=== PATIENT | male | born 1970 | race American Indian/Alaskan Native ===

== ENCOUNTER 2018-01-02 05:23 | Emergency (ER) | payer MEDICAID ==
[2018-01-02] MEDS ORDERED: ASPIRIN PO ONE (06:17)
[2018-01-02 07:06] LABS: Basophils # (Auto) 0.1 K/mm3 (0.0-0.1); Basophils % (Auto) 0.5 % (0.0-1.8); Eosinophils # (Auto) 0.1 K/mm3 (0.0-0.4); Eosinophils % (Auto) 0.5 % (0.0-4.3); Hematocrit 45.1 % (35.5-45.6); Lymphocytes # (Auto) 1.8 K/mm3 (1.2-5.4); Lymphocytes % (Auto) 14.7 % (13.4-35.0); Mean Corpuscular HGB Conc 33 % (32-34); Mean Corpuscular Hemoglobin 29 pg (28-32); Mean Corpuscular Volume 88 fl (84-94); Monocytes # (Auto) 1.1 K/mm3 (0.0-0.8); Monocytes % (Auto) 8.7 % (0.0-7.3); Platelet Count 189 K/mm3 (140-440); Red Blood Count 5.16 M/mm3 (3.65-5.03)
[2018-01-02 07:10] LABS: BUN/Creatinine Ratio 4; Blood Urea Nitrogen 3 mg/dL (9-20); Calcium 9.8 mg/dL (8.4-10.2); Hemolysis Index 4
--- NOTE | 2018-01-02 08:02 | Emergency Department Report ---
ED General Adult HPI - General Chief complaint: Chest Pain Stated complaint: TOOTHACHE Time Seen by Provider: 01/02/18 08:00 Source: patient Mode of arrival: Ambulatory Limitations: No Limitations - History of Present Illness Initial comments: This is a 47-year-old male who is noncompliant with his blood pressure medication and dental care. States he saw a dentist 2 years ago for the same problem and "they blew me off". He states he goes to a clinic in [place] where he lives for his medical care. He presented today for evaluation of swelling of his right jaw area. He knows he has problems with his dentition in that area. He states he felt like he had a fever last night. He did not have any right gutters. He denies any neck swelling or difficulty with swallowing. He states incidentally that he had a "chest pain for a second" last night. This chest pain started in his left axillary area and radiated around under his breast and has not recurred. There was no associated symptoms. He denies any recent travel leg pain or swelling. He has no history of CAD or VTE. -: Gradual, days(s), week(s) Location: face Radiation: non-radiation Quality: aching (intermittent right lower dentalgia/jaw pain.) Consistency: intermittent Improves with: none Worsens with: none Associated Symptoms: denies other symptoms, chest pain (chest pain as above described without recurrence) - Related Data Home Medications Medication Instructions Recorded Confirmed Last Taken hydroCHLOROthiazide [HCTZ] 12.5 mg PO DAILY 11/29/14 08/31/15 08/30/15 dilTIAZem [Cardizem] 30 mg PO BID 08/31/15 08/31/15 08/22/15 Previous Rx's Medication Instructions Recorded Last Taken Type Acetaminophen/Codeine [Tylenol #3] 1 tab PO Q6H PRN #10 tab 08/31/15 Unknown Rx Clindamycin [Clindamycin CAP] 300 mg PO Q8H #21 cap 01/02/18 Unknown Rx HYDROcodone/APAP 5-325 [[place] 1 each PO Q6HR PRN #7 tablet 01/02/18 Unknown Rx 5/325] Labetalol [Normodyne TAB] 100 mg PO BID #60 tablet 01/02/18 Unknown Rx Allergies Allergy/AdvReac Type Severity Reaction Status Date / Time No Known Allergies Allergy Unverified 11/29/14 08:50 ED Review of Systems ROS: Stated complaint: TOOTHACHE Other details as noted in HPI Constitutional: fever Eyes: as per HPI. denies: eye pain, eye discharge, vision change ENT: denies: ear pain, throat pain Respiratory: denies: cough, shortness of breath, wheezing Cardiovascular: as per HPI, chest pain. denies: palpitations Endocrine: no symptoms reported Gastrointestinal: denies: abdominal pain, nausea, diarrhea Genitourinary: denies: urgency, dysuria Musculoskeletal: denies: back pain, joint swelling, arthralgia Skin: denies: rash, lesions Neurological: denies: headache, weakness, paresthesias Psychiatric: denies: anxiety, depression Hematological/Lymphatic: denies: easy bleeding, easy bruising ED Past Medical Hx - Past Medical History Previous Medical History?: Yes Hx Hypertension: Yes - Surgical History Past Surgical History?: Yes Additional Surgical History: Hernia removal x2 - Social History Smoking Status: Current Every Day Smoker Substance Use Type: None - Medications Home Medications: Home Medications Medication Instructions Recorded Confirmed Last Taken Type hydroCHLOROthiazide [HCTZ] 12.5 mg PO DAILY 11/29/14 08/31/15 08/30/15 History Acetaminophen/Codeine [Tylenol #3] 1 tab PO Q6H PRN #10 tab 08/31/15 Unknown Rx dilTIAZem [Cardizem] 30 mg PO BID 08/31/15 08/31/15 08/22/15 History Clindamycin [Clindamycin CAP] 300 mg PO Q8H #21 cap 01/02/18 Unknown Rx HYDROcodone/APAP 5-325 [[place] 1 each PO Q6HR PRN #7 tablet 01/02/18 Unknown Rx 5/325] Labetalol [Normodyne TAB] 100 mg PO BID #60 tablet 01/02/18 Unknown Rx ED Physical Exam - General Limitations: No Limitations General appearance: alert, in no apparent distress - Head Head exam: Present: atraumatic, normocephalic - Eye Eye exam: Present: normal appearance. Absent: scleral icterus - ENT ENT exam: Present: mucous membranes moist, other (there is gingival reaction erythema and swelling at tooth 28 or 27. There is a carious retained root at 32. The patient is otherwise edentulous and neck quadrant. There is no fluctuance or drainage.) - Neck Neck exam: Present: normal inspection, full ROM. Absent: tenderness, meningismus - Respiratory Respiratory exam: Present: normal lung sounds bilaterally. Absent: respiratory distress - Cardiovascular Cardiovascular Exam: Present: regular rate, normal rhythm. Absent: systolic murmur, diastolic murmur, rubs, gallop - GI/Abdominal GI/Abdominal exam: Present: soft, normal bowel sounds. Absent: distended, tenderness, guarding, rebound, rigid - Rectal Rectal exam: Present: deferred - Extremities Exam Extremities exam: Present: normal inspection, normal capillary refill. Absent: calf tenderness - Back Exam Back exam: Present: normal inspection - Neurological Exam Neurological exam: Present: alert, oriented X3, CN II-XII intact. Absent: motor sensory deficit - Psychiatric Psychiatric exam: Present: normal affect, normal mood - Skin Skin exam: Present: warm, dry, intact, normal color. Absent: rash ED Course Vital Signs 01/02/18 06:10 Temperature 100 F H Pulse Rate 98 H Respiratory 18 Rate Blood Pressure 177/103 O2 Sat by Pulse 98 Oximetry - Reevaluation(s) Reevaluation #1: The patient will be given IM penicillin. He will be continued on clindamycin. He will be prescribed antihypertensive medication. He is encouraged to follow up with his primary care provider and dentist. He should return any prolonged chest pain for reevaluation. 01/02/18 08:17 ED Medical Decision Making - Lab Data Result diagrams: 01/02/18 06:36 01/02/18 06:36 Laboratory Results - last 24 hr 01/02/18 01/02/18 06:36 06:36 WBC 12.2 H RBC 5.16 H Hgb 15.0 Hct 45.1 MCV 88 MCH 29 MCHC 33 RDW 15.0 Plt Count 189 Lymph % (Auto) 14.7 [place] % (Auto) 8.7 H Eos % (Auto) 0.5 Baso % (Auto) 0.5 Lymph # 1.8 Hunt # 1.1 H Eos # 0.1 Baso # 0.1 Seg Neutrophils % 75.6 H Seg Neutrophils # 9.2 H Sodium 136 L Potassium 4.3 Chloride 98.0 Carbon Dioxide 26 Anion Gap 16 BUN 3 L Creatinine 0.7 L Estimated GFR > 60 BUN/Creatinine Ratio 4 Glucose 104 H Calcium 9.8 Troponin T < 0.010 - EKG Data -: EKG Interpreted by Me EKG shows normal: sinus rhythm, axis (leftward axis), intervals, QRS complexes, ST-T waves - EKG Data Interpretation: other (left atrial abnormality. RSR in V2. No acute ischemic changes) Critical care attestation.: If time is entered above; I have spent that time in minutes in the direct care of this critically ill patient, excluding procedure time. ED Disposition Clinical Impression: Dental infection, Essential hypertension, Atypical chest pain Disposition: TO HOME OR SELFCARE Is pt being admited?: No Does the pt Need Aspirin: No Condition: Stable Instructions: Hypertension (ED), Chest Pain (ED), Dental Abscess (ED) Additional Instructions: Follow-up with your primary care clinic in [place] and dentist there. Rx as directed. Return any acute change. Return any prolonged chest discomfort. Should you have a worsening dental infection bradycardia may be a good choice for additional care as they do have an oral surgery clinic. Prescriptions: Clindamycin [Clindamycin CAP] 300 mg PO Q8H #21 cap HYDROcodone/APAP 5-325 [[place] 5/325] 1 each PO Q6HR PRN #7 tablet PRN Reason: Pain Labetalol [Normodyne TAB] 100 mg PO BID #60 tablet Referrals: usual, primary care and dentist [Other] - 3-5 Days Time of Disposition: 09:00
[2018-01-02] MEDS ORDERED: BICILLIN L-A IM ONE (08:24)
[2018-01-02] MEDS ORDERED: NORMODYNE PO ONE (08:40)
[2018-01-02] MEDS ORDERED: NORCO 5/325 PO ONE (08:40)
[2018-01-02] MEDS ORDERED: NORCO 5/325 ONE (08:48)
[2018-01-02] MEDS ORDERED: NORMODYNE ONE (08:49)
[2018-01-02 09:00] VITALS: BP 167/114
== END 2018-01-02 09:01 | disposition home or self-care (01) ==
LOC: ED 05:23
DX: K04.7 Periapical abscess without sinus (principal); I10 Essential (primary) hypertension; R07.89 Other chest pain; F17.200 Nicotine dependence, unspecified, uncomplicated
CPT/HCPCS: 36415; 80048; 84484; 85025; 93005; 93010; 96372; 99284; J0561

== ENCOUNTER 2018-05-08 11:10 | Emergency (ER) | payer MEDICAID ==
[2018-05-08 11:27] VITALS: BP 133/90
--- NOTE | 2018-05-08 11:27 | Emergency Department Report ---
Blank Doc - Documentation Documentation: 47-year-old male that presents with night sweats x2 nights. Denies any other c omplaints. Stated he take Labetolol 100 mg but has not been taking it as he was prescribed due it causes abdominal discomfort. Also wants medication refill for b/p. Will ordered labs Patient sent to [facility] for further evaluation
[2018-05-08 12:07] LABS: Basophils # (Auto) 0.1 K/mm3 (0.0-0.1); Basophils % (Auto) 0.8 % (0.0-1.8); Eosinophils # (Auto) 0.1 K/mm3 (0.0-0.4); Eosinophils % (Auto) 1.1 % (0.0-4.3); Hematocrit 43.3 % (35.5-45.6); Hemoglobin 14.2 gm/dl (11.8-15.2); Lymphocytes % (Auto) 26.7 % (13.4-35.0); Mean Corpuscular HGB Conc 33 % (32-34); Mean Corpuscular Volume 87 fl (84-94); Monocytes # (Auto) 0.8 K/mm3 (0.0-0.8); Monocytes % (Auto) 10.8 % (0.0-7.3); Platelet Count 122 K/mm3 (140-440); Red Blood Count 4.97 M/mm3 (3.65-5.03); Red Cell Distribution Width 15.4 % (13.2-15.2)
[2018-05-08 12:27] LABS: BUN/Creatinine Ratio 11; Blood Urea Nitrogen 8 mg/dL (9-20); Calcium 8.4 mg/dL (8.4-10.2); Hemolysis Index 65
--- NOTE | 2018-05-08 12:46 | Emergency Department Report ---
ED Recheck HPI - General Chief Complaint: High BP Stated Complaint: BP CHECK Time Seen by Provider: 05/08/18 11:28 Source: patient Mode of arrival: Ambulatory Limitations: No Limitations - History of Present Illness Initial Comments: She is a 47-year-old male who comes to the ER with no complaints he is here just for medication refill. - Related Data Previous Rx's Medication Instructions Recorded Last Taken Type Labetalol [Normodyne TAB] 100 mg PO BID #60 tablet 05/08/18 Unknown Rx Allergies Allergy/AdvReac Type Severity Reaction Status Date / Time No Known Allergies Allergy Verified 05/08/18 11:11 ED Review of Systems ROS: Stated complaint: BP CHECK Other details as noted in HPI Comment: All other systems reviewed and negative Constitutional: denies: chills Eyes: denies: eye pain ENT: denies: throat pain Respiratory: denies: cough Cardiovascular: denies: palpitations ED Past Medical Hx - Past Medical History Hx Hypertension: Yes - Surgical History Additional Surgical History: Hernia removal x2 - Social History Smoking Status: Current Every Day Smoker Substance Use Type: None - Medications Home Medications: Home Medications Medication Instructions Recorded Confirmed Last Taken Type Labetalol [Normodyne TAB] 100 mg PO BID #60 tablet 05/08/18 Unknown Rx ED Physical Exam - General Limitations: No Limitations General appearance: alert, in no apparent distress - Head Head exam: Present: atraumatic - Eye Eye exam: Present: normal appearance Pupils: Present: normal accommodation - ENT ENT exam: Present: mucous membranes moist - Neck Neck exam: Present: normal inspection - Respiratory Respiratory exam: Present: normal lung sounds bilaterally - Cardiovascular Cardiovascular Exam: Present: regular rate - GI/Abdominal GI/Abdominal exam: Present: soft - Rectal Rectal exam: Present: deferred - Extremities Exam Extremities exam: Present: normal inspection, full ROM - Back Exam Back exam: Present: normal inspection, full ROM - Neurological Exam Neurological exam: Present: alert, oriented X3, CN II-XII intact ED Course Vital Signs 05/08/18 11:24 Temperature 97.8 F Pulse Rate 90 Respiratory 18 Rate Blood Pressure 133/90 O2 Sat by Pulse 99 Oximetry ED Recheck MDM - Medical Decision Making Patient is here for medication refill. He has no symptoms. He was seen here and given his blood pressure medicine in the past. We have discussed appropriate PCP use. Referral given Labs 05/08/18 05/08/18 11:58 11:58 WBC 7.7 RBC 4.97 Hgb 14.2 Hct 43.3 MCV 87 MCH 29 MCHC 33 RDW 15.4 H Plt Count 122 L Lymph % (Auto) 26.7 [place] % (Auto) 10.8 H Eos % (Auto) 1.1 Baso % (Auto) 0.8 Lymph # 2.0 [place] # 0.8 Eos # 0.1 Baso # 0.1 Seg Neutrophils % 60.6 Seg Neutrophils # 4.6 Sodium 137 Potassium 4.4 Chloride 99.3 Carbon Dioxide 24 Anion Gap 18 BUN 8 L Creatinine 0.7 L Estimated GFR > 60 BUN/Creatinine Ratio 11 Glucose 87 Calcium 8.4 Critical care attestation.: If time is entered above; I have spent that time in minutes in the direct care of this critically ill patient, excluding procedure time. ED Disposition Clinical Impression: Medication refill, Hypertension Disposition: DC-01 TO HOME OR SELFCARE Is pt being admited?: No Does the pt Need Aspirin: No Condition: Stable Instructions: Hypertension (ED) Prescriptions: Labetalol [Normodyne TAB] 100 mg PO BID #60 tablet Referrals: LIZZY FREED DO [Primary Care Provider] - 3-5 Days Time of Disposition: 12:45
== END 2018-05-08 13:09 | disposition home or self-care (01) ==
LOC: ED 11:10
DX: I10 Essential (primary) hypertension (principal); Z76.0 Encounter for issue of repeat prescription
CPT/HCPCS: 36415; 80048; 85025; 99283

== ENCOUNTER 2019-04-26 16:21 | Emergency (ER) | payer MEDICAID ==
--- NOTE | 2019-04-26 17:11 | Emergency Department Report ---
Blank Doc - Documentation Documentation: 48-year-old male that presents with cough with SOB. This initial assessment/diagnostic orders/clinical plan/treatment(s) is/are subject to change based on patient's health status, clinical progression and re- assessment by fellow clinical providers in the ED. Further treatment and workup at subsequent clinical providers discretion. Patient/guardians urged not to elope from the ED as their condition may be serious if not clinically assessed and managed. Initial orders include: 1- Patient sent to [facility] for further evaluation and treatment 2- cxr
--- NOTE | 2019-04-26 18:00 | XRay Report ---
CHEST 2 VIEWS INDICATION / CLINICAL INFORMATION: MAIN: cough/shortness of breath since 0100pm. COMPARISON: None available. FINDINGS: SUPPORT DEVICES: None. HEART / MEDIASTINUM: No significant abnormality. LUNGS / PLEURA: No significant pulmonary or pleural abnormality. No pneumothorax. ADDITIONAL FINDINGS: No significant additional findings. IMPRESSION: 1. No acute findings. Signer Name: Nir Jang MD Signed: 04/26/2019 5:56 PM Workstation Name: [id number]
[2019-04-26] MEDS ORDERED: ACETAMINOPHEN 325 MG TAB PO ONE (19:49)
[2019-04-26] MEDS ORDERED: IBUPROFEN 600 MG TAB PO ONE (19:49)
--- NOTE | 2019-04-26 19:53 | Emergency Department Report ---
ED General Adult HPI - General Chief complaint: Upper Respiratory Infection Stated complaint: KAYLEE/BACK PAIN Time Seen by Provider: 04/26/19 17:10 Source: patient, RN notes reviewed, old records reviewed Mode of arrival: Ambulatory Limitations: No Limitations - History of Present Illness Initial comments: Patient is a 48-year-old gentleman, history of hypertension, follows with a Dr. Jimenez Patient presents with a complaint of nontraumatic midthoracic back pain, aching, nonspecific shortness of breath which is nonexertional. Symptoms present since last night. Symptoms decreased with certain body positions. Back pain increases with palpation and certain body positions. There is no headache, chest pain, vomiting, diaphoresis, abdominal pain. Patient reports a recent trip, 6 hours to [place]. There is no hematemesis or bright red blood per rectum. -: Gradual Location: back Quality: aching Consistency: intermittent, other Improves with: other Worsens with: other Associated Symptoms: shortness of breath - Related Data Previous Rx's Medication Instructions Recorded Last Taken Type labetaloL [Labetalol 100mg TAB] 100 mg PO BID #60 tablet 05/08/18 Unknown Rx Acetaminophen [Non-Aspirin Extra 500 mg PO Q6HR PRN #30 tablet 04/26/19 Unknown Rx Strength] Ibuprofen [Motrin] 600 mg PO Q8H PRN #30 tablet 04/26/19 Unknown Rx Magnesium Oxide [Mag-Ox] 400 mg PO QDAY #30 tablet 04/26/19 Unknown Rx Allergies Allergy/AdvReac Type Severity Reaction Status Date / Time No Known Allergies Allergy Verified 05/08/18 11:11 ED Review of Systems ROS: Stated complaint: KAYLEE/BACK PAIN Other details as noted in HPI Constitutional: denies: fever Eyes: denies: eye discharge Respiratory: shortness of breath Cardiovascular: denies: chest pain Gastrointestinal: denies: abdominal pain Musculoskeletal: back pain Skin: denies: lesions Neurological: denies: weakness Hematological/Lymphatic: denies: easy bleeding ED Past Medical Hx - Past Medical History Previous Medical History?: Yes Hx Hypertension: Yes - Surgical History Past Surgical History?: Yes Additional Surgical History: Hernia removal x2 - Social History Smoking Status: Current Every Day Smoker Substance Use Type: None - Medications Home Medications: Home Medications Medication Instructions Recorded Confirmed Last Taken Type labetaloL [Labetalol 100mg TAB] 100 mg PO BID #60 tablet 05/08/18 Unknown Rx Acetaminophen [Non-Aspirin Extra 500 mg PO Q6HR PRN #30 tablet 04/26/19 Unknown Rx Strength] Ibuprofen [Motrin] 600 mg PO Q8H PRN #30 tablet 04/26/19 Unknown Rx Magnesium Oxide [Mag-Ox] 400 mg PO QDAY #30 tablet 04/26/19 Unknown Rx ED Physical Exam - General Limitations: No Limitations General appearance: alert, in no apparent distress - Head Head exam: Present: atraumatic, normocephalic - Eye Eye exam: Present: normal appearance, EOMI. Absent: nystagmus - ENT ENT exam: Present: normal exam, normal orophraynx, mucous membranes moist, normal external ear exam - Neck Neck exam: Present: normal inspection, full ROM. Absent: tenderness, meningismus - Respiratory Respiratory exam: Present: normal lung sounds bilaterally. Absent: respiratory distress - Cardiovascular Cardiovascular Exam: Present: regular rate, normal rhythm, normal heart sounds. Absent: bradycardia, tachycardia, irregular rhythm, systolic murmur, diastolic murmur, rubs, gallop - GI/Abdominal GI/Abdominal exam: Present: soft. Absent: distended, tenderness, guarding, rebound, rigid, pulsatile mass - Rectal Rectal exam: Present: deferred - Extremities Exam Extremities exam: Present: normal inspection, full ROM, other (2+ pulses noted in the bilateral upper and lower extremities. There is no long bony tenderness. The pelvis is stable. The muscular compartments are soft. There is no palpable cord. There is no redness, pus or streaking.). Absent: pedal edema, calf tenderness - Back Exam Back exam: Present: normal inspection, full ROM. Absent: tenderness, CVA tenderness (R), CVA tenderness (L), paraspinal tenderness, vertebral tenderness - Neurological Exam Neurological exam: Present: alert, oriented X3, normal gait, other (there is no facial droop. Tongue is midline. Extraocular movements are intact bilaterally. Walking with a steady gait. Speaking in full sentences. Normal appropriate thought content. 5 out of 5 strength in 4 extremities. Sensation is intact to light touch in 4 extremities.). Absent: motor sensory deficit - Psychiatric Psychiatric exam: Present: normal affect, normal mood - Skin Skin exam: Present: warm, dry, intact, normal color. Absent: rash ED Course Vital Signs 04/26/19 04/26/19 04/26/19 17:10 21:03 21:04 Temperature 98.4 F 98.6 F Pulse Rate 72 84 Respiratory 20 16 16 Rate Blood Pressure 162/103 Blood Pressure 167/84 [Left] O2 Sat by Pulse 98 100 Oximetry - Reevaluation(s) Reevaluation #1: 04/26/19 22:43 Patient was informed about incidental a left-sided renal findings, and need to follow-up with her primary care doctor on a routine outpatient basis. ED Medical Decision Making - Lab Data Result diagrams: 04/26/19 20:00 04/26/19 20:00 Vital Signs 04/26/19 04/26/19 04/26/19 17:10 21:03 21:04 Temperature 98.4 F 98.6 F Pulse Rate 72 84 Respiratory 20 16 16 Rate Blood Pressure 162/103 Blood Pressure 167/84 [Left] O2 Sat by Pulse 98 100 Oximetry Lab Results 04/26/19 04/26/19 04/26/19 Range/Units 20:00 20:00 20:00 WBC 6.1 (4.5-11.0) K/mm3 RBC 5.09 H (3.65-5.03) M/mm3 Hgb 14.9 (11.8-15.2) gm/dl Hct 45.3 (35.5-45.6) % MCV 89 (84-94) fl MCH 29 (28-32) pg MCHC 33 (32-34) % RDW 14.9 (13.2-15.2) % Plt Count 273 (140-440) K/mm3 PT 12.6 (12.2-14.9) Sec. INR 0.93 (0.87-1.13) D-Dimer 406.35 H (0-234) ng/mlDDU Sodium 134 L (137-145) mmol/L Potassium 3.9 (3.6-5.0) mmol/L Chloride 96.2 L (98-107) mmol/L Carbon Dioxide 22 (22-30) mmol/L Anion Gap 20 mmol/L BUN 5 L (9-20) mg/dL Creatinine 0.6 L (0.8-1.5) mg/dL Estimated GFR > 60 ml/min BUN/Creatinine Ratio 8 % Glucose 151 H (75-100) mg/dL Calcium 10.2 (8.4-10.2) mg/dL Magnesium 1.40 L (1.7-2.3) mg/dL Total Bilirubin 0.30 (0.1-1.2) mg/dL AST 15 (5-40) units/L ALT 10 (7-56) units/L Alkaline Phosphatase 49 (35-129) units/L Total Creatine Kinase 80 (55-170) units/L Troponin T (0.00-0.029) ng/mL Total Protein 7.6 (6.3-8.2) g/dL Albumin 3.8 L (3.9-5) g/dL Albumin/Globulin Ratio 1.0 % 04/26/19 04/26/19 Range/Units 20:00 21:21 WBC (4.5-11.0) K/mm3 RBC (3.65-5.03) M/mm3 Hgb (11.8-15.2) gm/dl Hct (35.5-45.6) % MCV (84-94) fl MCH (28-32) pg MCHC (32-34) % RDW (13.2-15.2) % Plt Count (140-440) K/mm3 PT (12.2-14.9) Sec. INR (0.87-1.13) D-Dimer (0-234) ng/mlDDU Sodium (137-145) mmol/L Potassium (3.6-5.0) mmol/L Chloride (98-107) mmol/L Carbon Dioxide (22-30) mmol/L Anion Gap mmol/L BUN (9-20) mg/dL Creatinine (0.8-1.5) mg/dL Estimated GFR ml/min BUN/Creatinine Ratio % Glucose (75-100) mg/dL Calcium (8.4-10.2) mg/dL Magnesium (1.7-2.3) mg/dL Total Bilirubin (0.1-1.2) mg/dL AST (5-40) units/L ALT (7-56) units/L Alkaline Phosphatase (35-129) units/L Total Creatine Kinase (55-170) units/L Troponin T < 0.010 < 0.010 (0.00-0.029) ng/mL Total Protein (6.3-8.2) g/dL Albumin (3.9-5) g/dL Albumin/Globulin Ratio % - EKG Data -: EKG Interpreted by Nv EKG shows normal: sinus rhythm Rate: normal - EKG Data 04/26/19 22:32 EKG #1, EKG #2 unchanged from prior EKG from December 2017 EKG #1 shows a sinus rhythm, 60 bpm, normal axis, [place] interval prolonged, nonspecific T-wave abnormality, motion artifact, [place] interval 222 ms, not consistent with ST elevation myocardial infarction #2 is unchanged from prior. Both EKGs are unchanged from prior EKG from 2018, with the exception of prolonged [place] interval - Radiology Data Radiology results: report reviewed, image reviewed X-ray the chest is negative for acute disease. CT scan of the chest was negative for acute disease. Incidental findings noted. - Medical Decision Making Differential diagnosis, including limited to: Muscular sprain, strain, pneumonia, pneumothorax, pulmonary embolism, acute coronary syndrome Assessment and plan: 48-year-old gentleman status post recent Road trip to [place], with nonspecific midthoracic back pain, at the level of the bilateral spines of the scapula, and nonspecific shortness of breath. He is currently not tachycardic, tachypnea or hypoxic. Low risk by well's criteria, however, given recent travel, otherwise unexplained nature of symptoms, d-dimer sent, found to be elevated, CT scan of the chest obtained, and is negative for acute disease. Incidental left-sided renal lesion is reviewed and appreciated, he can follow up with an outpatient primary care doctor for this. His pain was treated appropriately, his magnesium was repleted, he was observed in this department for hours without clinical decompensation. EKG is unchanged 2. Patient medically suitable to follow up with outpatient primary care doctor for incidental nonemergent findings, and he can follow up with either an outpatient primary care doctor or manager social media to complete a cardiac risk stratification. Low risk for major adverse cardiac event as for the heart score. Critical care attestation.: If time is entered above; I have spent that time in minutes in the direct care of this critically ill patient, excluding procedure time. ED Disposition Clinical Impression: Back pain, Hypomagnesemia, History of dyspnea Disposition: -01 TO HOME OR SELFCARE Is pt being admited?: No Does the pt Need Aspirin: No Condition: Stable Additional Instructions: Rest, avoid heavy lifting, and avoid strenuous physical activities. Take the pain medications as needed and/or directed. Do not take metformin medication for the next 2 days, if patient takes this prescription medication. Please make certain to take the magnesium supplementation as directed. Recommend patient follow up with an outpatient primary care doctor or manager social media for complaint of shortness of breath within the next 3-5 days. In addition, the patient should follow-up with the primary care doctor to have magnesium level rechecked within 2 weeks. Please return to emergency room right away with it, worsened or different symptoms, or symptoms not present on the initial emergency room evaluation. Prescriptions: Magnesium Oxide [Mag-Ox] 400 mg PO QDAY #30 tablet Ibuprofen [Motrin] 600 mg PO Q8H PRN #30 tablet PRN Reason: Pain Acetaminophen [Non-Aspirin Extra Strength] 500 mg PO Q6HR PRN #30 tablet PRN Reason: Pain , Severe (7-10) Referrals: [facility] [Other] - 3-5 Days [facility] [Provider Group] - 3-5 Days [facility] [Provider Group] - 3-5 Days
[2019-04-26 20:26] LABS: Hematocrit 45.3 % (35.5-45.6); Hemoglobin 14.9 gm/dl (11.8-15.2); Mean Corpuscular HGB Conc 33 % (32-34); Mean Corpuscular Volume 89 fl (84-94); Platelet Count 273 K/mm3 (140-440); Red Blood Count 5.09 M/mm3 (3.65-5.03); Red Cell Distribution Width 14.9 % (13.2-15.2)
[2019-04-26 20:41] LABS: Alanine Aminotransferase 10 units/L (7-56); Albumin 3.8 g/dL (3.9-5); BUN/Creatinine Ratio 8; Blood Urea Nitrogen 5 mg/dL (9-20); Calcium 10.2 mg/dL (8.4-10.2); Hemolysis Index 17
[2019-04-26 20:45] LABS: INR 0.93 (0.87-1.13)
[2019-04-26] MEDS ORDERED: MAGNESIUM SULFATE 2 GM/50 ML BAG IV ONE (20:47)
[2019-04-26] MEDS ORDERED: MAGNESIUM OXIDE 400 MG TAB PO ONE (20:47)
[2019-04-26] MEDS ORDERED: SODIUM CHLORIDE 0.9% 1000 ML 1,000 ML IV ONE (20:49)
--- NOTE | 2019-04-26 21:40 | Cat Scan Report ---
CTA CHEST WITH IV CONTRAST INDICATION: back pain sob + d dimer recent trip CONTRAST: 100 cc Omnipaque 350 IV COMPARISON: Chest x-ray tonight Three-plane MIP reconstructions were produced. All CT scans at this location are performed using CT d ose reduction for ALARA by means of automated exposure control. FINDINGS: No significant axillary or chest wall abnormalities are seen. Visualized portions of the up per abdomen show a small lesion arising from the lateral aspect of the upper pole of the left kidney measuring 2.3 cm in diameter with internal density above the water range at 30 Hounsfield units and w ith possible mild wall thickening. No acute upper abdominal abnormalities are seen. No mediastinal or hilar masses are noted. No pleural effusions are seen. No pneumothorax or pneumomediastinum are note d. Mild bilateral atelectatic changes are seen. No areas of consolidation are noted. No pulmonary nod ules or masses are seen. No obvious endobronchial lesions are noted. Aorta shows no aneurysmal dilatation or evidence of dissection. Major branches show good opacificatio n. Good opacification of the pulmonary arterial system was achieved. I do not see evidence of pulmonary thromboembolism. IMPRESSION: 1. No acute abnormalities are seen. No evidence of pulmonary thromboembolism. 2. Indeterminate left renal lesion. Recommend follow-up in a nonurgent setting with multiphase CT. Signer Name: Junior Pinedo MD Signed: 04/26/2019 9:36 PM Workstation Name: [id number]
[2019-04-26 23:07] VITALS: BP 158/99
== END 2019-04-26 22:56 | disposition home or self-care (01) ==
LOC: ED 16:21
DX: E83.42 Hypomagnesemia (principal); R06.00 Dyspnea, unspecified; M54.6 Pain in thoracic spine; I10 Essential (primary) hypertension; Z98.890 Other specified postprocedural states; Z79.899 Other long term (current) drug therapy
CPT/HCPCS: 36415; 71046; 71275; 80053; 82550; 83735; 84484; 85027; 85379; 85610; 93005; 93010; 96365; 99285; J3475; J7030; Q9967

== ENCOUNTER 2019-06-09 19:21 | Emergency (ER) | payer MEDICAID ==
[2019-06-09 20:10] VITALS: BP 151/91
--- NOTE | 2019-06-09 21:01 | XRay Report ---
CHEST 2 VIEWS INDICATION / CLINICAL INFORMATION: cough. COMPARISON: 04/26/2019 FINDINGS: SUPPORT DEVICES: None. HEART / MEDIASTINUM: No significant abnormality. LUNGS / PLEURA: No significant pulmonary or pleural abnormality. .No pneumothorax. ADDITIONAL FINDINGS: No significant additional findings. IMPRESSION: 1. No acute findings. Signer Name: Lavelle Rushing MD Signed: 06/09/2019 8:57 PM Workstation Name: [id number]
== END 2019-06-09 23:43 | disposition left against medical advice (07) ==
LOC: ED 19:21
DX: R06.7 Sneezing (principal); Z53.21 Procedure and treatment not carried out due to patient leaving prior to being seen by health care provider
CPT/HCPCS: 71046